=== PATIENT | female | born 1990 | race Caucasian/White ===

== ENCOUNTER 2019-02-27 13:33 | Emergency (ER) | payer OTHER ==
[~2019-02-27] VITALS: Ht 152.4 cm; Wt 61.2 kg
[2019-02-27 14:18] VITALS: Ht 152.4 cm; Wt 61.2 kg
[2019-02-27 16:04] LABS: AMPHETAMINE QUAL UR POSITIVE (See below)
[2019-02-27 16:30] VITALS: BP 117/81
== END 2019-02-27 16:30 | disposition home or self-care (01) ==
LOC: ED 13:33
PROVIDERS: Emergency Medicine
DX: G44.209 Tension-type headache, unspecified, not intractable (principal); J45.909 Unspecified asthma, uncomplicated
CPT/HCPCS: J1885